=== PATIENT | male | born 1975 | race Two or more races ===

== ENCOUNTER 2020-08-14 12:43 | Outpatient (CLI) | payer OTHER ==
[2020-08-14] MEDS ORDERED: LIDOCAINE 1%, 10ML ONE (12:54)
== END 2020-08-14 23:59 | disposition home or self-care (01) ==
LOC: RAD 12:43
PROVIDERS: ATTEND Family Medicine
DX: E07.89 Other specified disorders of thyroid (principal); C73 Malignant neoplasm of thyroid gland
CPT/HCPCS: 10005; 88172; 88173; J3490

== ENCOUNTER → 2020-09-07 | Outpatient (CLI) | payer OTHER ==
[~2020-09-07] MED LIST: OMNIPAQUE 350 MG/ML, 100ML BOTTLE ONE
== END | disposition home or self-care (01) ==
LOC: CFH 14:07
PROVIDERS: ATTEND Surgery
DX: E07.89 Other specified disorders of thyroid (principal)
CPT/HCPCS: 70491; Q9967